=== PATIENT | female | born 1935 | race Caucasian/White ===

== ENCOUNTER → 2017-01-15 | Outpatient (CLI) | payer BC ==
[~2017-01-15] MED LIST: BIOT1TAB2 PO; EVS60 PO; MULT-506 PO; NITR-5 PO; OMEG10007 PO; OSCD250 PO
--- NOTE | 2017-01-15 16:05 | MAMMOGRAPHY REPORT ---
BILATERAL DIGITAL SCREENING MAMMOGRAM WITH CAD: 01/15/2017 CLINICAL HISTORY: Routine screening. At the time of this screening mammogram appointment, the patie pratik reported to her senior technologist that she felt a new lump in the upper inner quadrant of the right breast approximately 2 weeks ago. A triangle palpable marker was placed on the skin of th e right breast in the area pointed out by the patient. TECHNIQUE: Bilateral CC and MLO views were obtained. Current study was also evaluated with a Comput er Aided Detection (CAD) system. COMPARISON: Comparison is made to exams dated: 11/17/2015 mammogram, 11/15/2014 mammogram, 06/05/2013 m ammogram, 06/04/2012 mammogram, 09/27/2009 mammogram - [facility], and 04/30/2008. BREAST COMPOSITION: The tissue of both breasts is heterogeneously dense, which may obscure small ma sses. FINDINGS: The breast parenchymal pattern is similar to prior exams. There are diffuse scattered and grouped benign-appearing microcalcifications. A triangle palpable marker overlies the upper inner anterior right breast, denoting the new palpable lump pointed out by the patient. No obvious new ma ss is seen in the area of palpable concern, or elsewhere throughout the remainder of the right breas t or within the left breast. No focal area of architectural distortion or developing asymmetry. IMPRESSION: ACR BI-RADS CATEGORY 0: INCOMPLETE EVALUATION: NEED ADDITIONAL IMAGING EVALUATION 1. Stable bilateral mammograms. 2. However, at the time of this screening appointment to the patient reported a new lump in the upp er inner right breast. For complete workup of the new palpable abnormality the standard of care is mammography plus ultrasound. Therefore, further evaluation with spot compression tomosynthesis view s in the area of concern as well as targeted right breast ultrasound is recommended. The patient will be called to schedule an appointment. Approximately 10% of breast cancers are not detected with mammography. A negative mammographic repor t should not delay biopsy if a clinically suggestive mass is present. Denisa Ch M.D. ay/:01/15/2017 14:48:39 Historian Dramatic Arts: Hien Marcos RT(R)(M), [facility] letter sent: Addl Imaging 0 BI-RADS Code: ACR BI-RADS Category 0: Incomplete Evaluation: Need Additional Imaging Evaluation
== END | disposition home or self-care (01) ==
LOC: C.MAMM 14:15
PROVIDERS: ATTEND Internal Medicine Critical Care Medicine
DX: Z12.31 Encounter for screening mammogram for malignant neoplasm of breast (principal); N63 Unspecified lump in breast

== ENCOUNTER → 2017-01-23 | Outpatient (CLI) | payer BC ==
--- NOTE | 2017-01-23 14:54 | MAMMOGRAPHY REPORT ---
UNILATERAL RIGHT DIGITAL DIAGNOSTIC MAMMOGRAM TOMOSYNTHESIS WITH CAD AND TARGETED RIGHT ULTRASOUND: 01/23/2017 CLINICAL HISTORY: Callback for a palpable lump reported by the patient at the time of her screening mammogram. No abnormality was seen on the screening mammogram in this region. TECHNIQUE: Breast tomosynthesis in addition to standard 2D mammography was performed. Current study was also evaluated with a Computer Aided Detection (CAD) system. Spot compression right CC and MLO 2-D and tomosynthesis images were obtained. COMPARISON: Comparison is made to exams dated: 01/15/2017 mammogram, 11/17/2015 mammogram, 11/15/2014 ma mmogram, 06/05/2013 mammogram, 06/04/2012 mammogram, and 09/27/2009 mammogram - [facility] enter. BREAST COMPOSITION: The tissue of the right breast is heterogeneously dense, which may obscure smal l masses. FINDINGS: A triangle marker sutton the site of the palpable lump in the right 12:00 breast. There a re asymmetry seen within the right superior breast on the MLO view in the region of the palpable lum p which appears similar to prior exams including the 2011 exam. No clear mass or other suspicious m ammographic abnormality is noted on the additional views. Targeted ultrasound was performed of the area of the palpable lump pointed out by the patient, in th e right breast at 12:00 approximately 4 cm from the nipple. Sonographically normal tissue is seen i n this region, without evidence of a mass or other suspicious sonographic abnormality. IMPRESSION: ACR BI-RADS CATEGORY 2: BENIGN, TARGETED ULTRASOUND ACR BI-RADS CATEGORY 2: BENIGN No suspicious mammographic or sonographic abnormality at the site of the palpable right breast lump pointed out by the patient. There is no mammographic or targeted sonographic evidence of malignancy . Recommend clinical follow-up for the palpable right breast lump, and recommend routine bilateral screening mammograms in one year. The patient has been verbally notified of the results. Approximately 10% of breast cancers are not detected with mammography. A negative mammographic repor t should not delay biopsy if a clinically suggestive mass is present. Gifty Rodriguez M.D. /:01/23/2017 13:44:12 Heavy Equipment Field Mechanic: Madeline CORREIA(Satish)(Erum), [facility] letter sent: Normal /2 BI-RADS Code: ACR BI-RADS Category 2: Benign Ultrasound BI-RADS: ACR BI-RADS Category 2: Benign
== END | disposition home or self-care (01) ==
LOC: C.MAMM 13:05
PROVIDERS: ATTEND Internal Medicine Critical Care Medicine
DX: N63 Unspecified lump in breast (principal)

== ENCOUNTER → 2017-04-23 | Outpatient (CLI) | payer BC ==
[2017-04-23 10:51] LABS: BASO % 0.6 %; BASO ABS # 0.04 K/uL (0-0.2); COMPLETE YES; EOS % 5.1 %; HEMATOCRIT 45.6 % (37-47); IG% 0.1 %; LYMPH % 32.2 %; LYMPH ABS # 2.27 K/uL (1.2-3.4); MEAN CELL VOLUME 90.7 fL (80-100); MEAN CORPUSCULAR HEMOGLOBIN 28.8 pg (25-34); MEAN CORPUSCULAR HGB CONC 31.8 g/dl (32-36); MEAN PLATELET VOLUME 10.7 fL (7.4-10.4); MONO % 9.1 %; NEUT % 52.9 %; PLATELET COUNT 299 K/uL (130-400); RED BLOOD COUNT 5.03 M/uL (4.2-5.4); WHITE BLOOD COUNT 7.05 K/uL (4.8-10.8)
[2017-04-23 11:00] LABS: BLOOD UREA NITROGEN 21 mg/dl (7-18); BUN/CREATININE RATIO 22.9 (10-20); CALCIUM 9.3 mg/dl (8.5-10.1); CARBON DIOXIDE 28 mmol/L (21-32); CHLORIDE 108 mmol/L (98-107); GLUCOSE 75 mg/dl (70-99); POTASSIUM 3.8 mmol/L (3.5-5.1); SODIUM 141 mmol/L (136-145)
[2017-04-23 11:10] LABS: ALB/GLOB RATIO 0.9 (0.9-2); ALKALINE PHOSPHATASE 85 U/L (45-117); ALT/SGPT 30 U/L (12-78); AST/SGOT 23 U/L (15-37)
== END ==
LOC: C.LABVPSUW 10:25
PROVIDERS: ATTEND Internal Medicine Critical Care Medicine
DX: D64.9 Anemia, unspecified (principal); E03.9 Hypothyroidism, unspecified; R51 Headache; R53.83 Other fatigue; R63.8 Other symptoms and signs concerning food and fluid intake; R41.9 Unspecified symptoms and signs involving cognitive functions and awareness

== ENCOUNTER → 2018-01-21 | Outpatient (CLI) | payer BC | END | disposition home or self-care (01) | LOC: C.LABSPEC 12:23 | PROVIDERS: ATTEND Nurse Practitioner | DX: R30.0 Dysuria (principal) ==

== ENCOUNTER 2018-04-26 22:04 | Emergency (ER) | payer BC ==
[~2018-04-26] VITALS: Ht 157.5 cm; Wt 59.0 kg
[~2018-04-26 22:04] MED LIST changes: +ASPI-435 PO; -BIOT1TAB2 PO; +CALC600T34 PO; -EVS60 PO; -MULT-506 PO; -NITR-5 PO; -OSCD250 PO
[2018-04-26 22:08] VITALS: TEMP 36.8; Ht 157.5 cm; Wt 59.0 kg
--- NOTE | 2018-04-26 23:26 | EMERGENCY ROOM VISIT NOTE ---
History Report prepared by Zachary: Nicole Yost Under the Supervision of: Dr. Marshal Ellis D.O. First contact with patient: 22:35 Chief Complaint: URINARY SYMPTOMS Stated Complaint: BLADDER INFECTION History of Present Illness The patient is an 82 year old female who presents to the Emergency Room with complaints of sudden urinary symptoms starting this afternoon. The patient states that she a part of a test program at [employer] that has a wire that affects her nerves around her bladder. She states that when it was first placed she had a UTI and was placed on Bactrim for it. She states that she had no issues with it until today. She states that this afternoon she took someone to see [facility]. She states that she had to hold her urine coming home and when she finally urinated, she leaked out and then had painful cramping. The patient states that since that episode she has had cramping each time she urinates. The patient denies nausea, vomiting, and diarrhea. Past records show that in the patient's last visit she grew out E.coli that was foster sensitive. They talked to OB-CHIEF COMMUNICATIONS OFFICER who recommended Bactrim. Source of History: patient Onset: this afternoon Position: abdomen Quality: other (urinary symptoms) Timing: other (sudden) Associated Symptoms: + abdominal pain (cramping), No nausea, No vomiting, No diarrhea Review of Systems See HPI for pertinent positives & negatives. A total of 10 systems reviewed and were otherwise negative. Past Medical & Surgical Medical Problems: (1) Acute urinary tract infection (2) Anemia (3) bleeding gastric ulcer (4) hypotension (5) Hysterectomy (6) Osteoporosis (7) Tonsillectomy Family History Patient reports no known family medical history. Social History Smoking Status: Former Smoker Alcohol Use: none Marital Status: Housing Status: lives alone Occupation Status: retired Current/Historical Medications Scheduled Aspirin (Aspirin 81), 81 MG PO QD Calcium Carbonate-Cholecalcife (Calcium/Vitamin D), 2 TAB PO BID Fish Oil ([place]-3), 1 CAP PO HS Sulfamethoxazole-Trimethoprim (Bactrim Ds 800MG/160MG), 1 TAB PO BID Allergies Coded Allergies: No Known Allergies (Verified , 04/26/18) Physical Exam Vital Signs Date Time Temp Pulse Resp B/P (MAP) Pulse Ox O2 Delivery O2 Flow Rate FiO2 04/27/18 00:24 98 20 161/76 98 04/26/18 22:08 36.8 109 20 160/89 97 Room Air Physical Exam GENERAL: Sitting up in bed, alert, well appearing, well nourished, no distress, non-toxic EYE EXAM: normal conjunctiva. OROPHARYNX: no exudate, no erythema, lips, buccal mucosa, and tongue normal and mucous membranes are moist NECK: supple, no nuchal rigidity, no adenopathy, non-tender LUNGS: Clear to auscultation. Normal chest wall mechanics HEART: no murmurs, S1 normal and S2 normal ABDOMEN: abdomen soft, non-tender, normo-active bowel sounds, no masses, no rebound or guarding. BACK: Back is symmetrical on inspection and there is no deformity, no midline tenderness, no CVA tenderness. [employer] device in back with no surrounding erythema. SKIN: no rashes and no bruising UPPER EXTREMITIES: upper extremities are grossly normal. LOWER EXTREMITIES: No pitting edema. NEURO EXAM: Normal sensorium, cranial nerves II-XII grossly intact, normal speech, no gross weakness of arms, no gross weakness of legs. Medical Decision & Procedures Laboratory Results 04/26/18 23:13 Red Blood Count 5.02, Mean Corpuscular Volume 78.3, Mean Corpuscular Hemoglobin 24.5, Mean Corpuscular Hemoglobin Concent 31.3, Mean Platelet Volume 9.7, Neutrophils (%) (Auto) 66.1, Lymphocytes (%) (Auto) 22.9, Monocytes (%) (Auto) 8.7, Eosinophils (%) (Auto) 1.8, Basophils (%) (Auto) 0.4, Neutrophils # (Auto) 5.56, Lymphocytes # (Auto) 1.93, Monocytes # (Auto) 0.73, Eosinophils # (Auto) 0.15, Basophils # (Auto) 0.03 04/26/18 23:13 Test 04/26/18 22:45 04/26/18 23:13 Urine Color YELLOW Urine Appearance TURBID (CLEAR) Urine pH 5.0 (4.5-7.5) Urine Specific [place] 1.027 (1.000-1.030) Urine Protein 2+ (NEG) Urine Glucose (UA) NEG (NEG) Urine Ketones NEG (NEG) Urine Occult Blood 3+ (NEG) Urine Nitrite NEG (NEG) Urine Bilirubin NEG (NEG) Urine Urobilinogen NEG (NEG) Urine Leukocyte Esterase LARGE (NEG) Urine WBC (Auto) >30 /hpf (0-5) Urine RBC (Auto) >30 /hpf (0-4) Urine Hyaline Casts (Auto) 1-5 /lpf (0-5) Urine Epithelial Cells (Auto) 5-10 /lpf (0-5) Urine Bacteria (Auto) NEG (NEG) Urine Renal Epithelial Cells 10-20 /lpf (0-5) Urine Yeast (Auto) (NONE PRSENT) White Blood Count 8.41 K/uL (4.8-10.8) Red Blood Count 5.02 M/uL (4.2-5.4) Hemoglobin 12.3 g/dL (12.0-16.0) Hematocrit 39.3 % (37-47) Mean Corpuscular Volume 78.3 fL (80-100) Mean Corpuscular Hemoglobin 24.5 pg (25-34) Mean Corpuscular Hemoglobin Concent 31.3 g/dl (32-36) Platelet Count 294 K/uL (130-400) Mean Platelet Volume 9.7 fL (7.4-10.4) Neutrophils (%) (Auto) 66.1 % Lymphocytes (%) (Auto) 22.9 % Monocytes (%) (Auto) 8.7 % Eosinophils (%) (Auto) 1.8 % Basophils (%) (Auto) 0.4 % Neutrophils # (Auto) 5.56 K/uL (1.4-6.5) Lymphocytes # (Auto) 1.93 K/uL (1.2-3.4) Monocytes # (Auto) 0.73 K/uL (0.11-0.59) Eosinophils # (Auto) 0.15 K/uL (0-0.5) Basophils # (Auto) 0.03 K/uL (0-0.2) RDW Standard Deviation 45.0 fL (36.4-46.3) RDW Coefficient of Variation 15.8 % (11.5-14.5) Immature Granulocyte % (Auto) 0.1 % Immature Granulocyte # (Auto) 0.01 K/uL (0.00-0.02) Anion Gap 6.0 mmol/L (3-11) Est Creatinine Clear Calc Drug Dose 36.0 ml/min Estimated GFR () 66.3 Estimated GFR (Non- 57.2 BUN/Creatinine Ratio 30.7 (10-20) Calcium Level 9.4 mg/dl (8.5-10.1) Total Bilirubin 0.1 mg/dl (0.2-1) Direct Bilirubin < 0.1 mg/dl (0-0.2) Aspartate Amino Transf (AST/SGOT) 22 U/L (15-37) Alanine Aminotransferase (ALT/SGPT) 23 U/L (12-78) Alkaline Phosphatase 93 U/L (45-117) Total Protein 7.0 gm/dl (6.4-8.2) Albumin 3.4 gm/dl (3.4-5.0) Laboratory results per my review. Medications Administered Medications (Trade) Dose Ordered Sig/Laina Route Start Time Stop Time Status Last Admin Dose Admin Trimethoprim/ Sulfamethoxazole (Septra Ds 800/ 160MG Tab) 1 tab NOW STAT PO 04/27/18 00:04 04/27/18 00:05 DC 04/27/18 00:17 1 TAB Trimethoprim/ Sulfamethoxazole (Sulfameth/ Trimeth Ds 800/ 160MG Home Pack) 1 homepack STK-MED ONCE PO 04/27/18 00:19 04/27/18 00:20 DC 04/27/18 00:20 1 HOMEPACK ED Course ED COURSE: Vital signs were reviewed and showed hypertension and tachycardia. The patients medical record was reviewed The above diagnostic studies were performed and reviewed. ED treatments and interventions as stated above. 2238: The patient was evaluated in room C5. A complete history and physical examination was performed. 0004: Ordered Trimethoprim/Sulfamethoxazole 1 tab PO. 0006: Upon reevaluation, the patient is resting comfortably. I discussed my findings with the patient and she understands and agrees with the treatment plan. Based on the patients age, coexisting illnesses, exam and lab findings the decision to treat as an outpatient was made. The patient remained stable while under my care. The patient appeared well at the time of discharge. Medical Decision Differential diagnoses includes but is not limited to gastritis, peptic ulcer disease, GERD, gallbladder disease, pancreatitis, small bowel obstruction, acute coronary syndrome, pericarditis, ischemic bowel, irritable bowel disease, irritable bowel syndrome, appendicitis, diverticulitis, malignancy, hernia, urinary tract infection, torsion, /ectopic , perforation, trauma, infectious. Patient is an 82-year-old female who presents to ER for urinary urgency and frequency. She notes symptoms started tonight. She is in a bladder study at [facility] through mechanic insulator. Patient notes that she was here recently treated for UTI. Previous cultures reviewed and notes. Pansensitive. Previous notes for her [facility] and was recommending Bactrim and following up as an outpatient. I updated patient in regards to these findings. She is given a dose of Bactrim and discharged follow-up with PCP as an outpatient. Patient had no other complaints. Abdominal exam was completely benign. She denies any abdominal pain. Discussed with Pt concerning signs and symptoms to watch out for. Pt was instructed to follow up with their PCP and discussed with the patient their option to return to the ED at anytime for persistent or worsening symptoms. The appropriate anticipatory guidance and out- patient management, including indications for return to the emergency department , were explained at length to the patient and understood. Medication Reconcilliation Current Medication List: was personally reviewed by me Blood Pressure Screening Patient's blood pressure: Elevated blood pressure Blood pressure disposition: Referred to PCP Impression Primary Impression: Urinary tract infection Scribe Attestation The scribe's documentation has been prepared under my direction and personally reviewed by me in its entirety. I confirm that the note above accurately reflects all work, treatment, procedures, and medical decision making performed by me. Departure Information Dispostion Home / Self-Care Prescriptions Sulfamethoxazole-Trimethoprim (Bactrim Ds 800MG/160MG) 1 Tab Tab 1 TAB PO BID, #14 TAB Prov: Marshal Ellis, 04/27/18 Referrals Demetrio Leon M.D. (PCP) Forms HOME CARE DOCUMENTATION FORM, IMPORTANT VISIT INFORMATION Patient Instructions My [facility] Additional Instructions Please follow up with your primary care doctor with in the next 24 hours. Any worsening of your symptoms, please return to the ED immediately. This includes any fevers greater than 100.4, worsening pain, chest pain, shortness breath, persistent nausea, vomiting, unable to eat or drink, or any other concerning signs or symptoms from your standpoint. Please take antibiotics as prescribed. Problem Qualifiers Primary Impression: Urinary tract infection Urinary tract infection type: acute cystitis Hematuria presence: with hematuria Qualified Codes: N30.01 - Acute cystitis with hematuria
[2018-04-26 23:30] LABS: BASO % 0.4 %; BASO ABS # 0.03 K/uL (0-0.2); EOS % 1.8 %; EOS ABS # 0.15 K/uL (0-0.5); HEMATOCRIT 39.3 % (37-47); HEMOGLOBIN 12.3 g/dL (12.0-16.0); IG# 0.01 K/uL (0.00-0.02); LYMPH % 22.9 %; LYMPH ABS # 1.93 K/uL (1.2-3.4); MEAN CELL VOLUME 78.3 fL (80-100); MEAN CORPUSCULAR HEMOGLOBIN 24.5 pg (25-34); MEAN CORPUSCULAR HGB CONC 31.3 g/dl (32-36); MEAN PLATELET VOLUME 9.7 fL (7.4-10.4); MONO % 8.7 %; MONO ABS # 0.73 K/uL (0.11-0.59); NEUT % 66.1 %; NEUT ABS # 5.56 K/uL (1.4-6.5); PLATELET COUNT 294 K/uL (130-400); RED CELL DISTRIBUTION WIDTH CV 15.8 % (11.5-14.5); WHITE BLOOD COUNT 8.41 K/uL (4.8-10.8)
[2018-04-26 23:51] LABS: ALBUMIN 3.4 gm/dl (3.4-5.0); ALKALINE PHOSPHATASE 93 U/L (45-117); ALT/SGPT 23 U/L (12-78); AST/SGOT 22 U/L (15-37); BLOOD UREA NITROGEN 28 mg/dl (7-18); CALCIUM 9.4 mg/dl (8.5-10.1); CARBON DIOXIDE 28 mmol/L (21-32); CREATININE 0.92 mg/dl (0.60-1.20); GLUCOSE 105 mg/dl (70-99); POTASSIUM 3.7 mmol/L (3.5-5.1); SODIUM 140 mmol/L (136-145)
[2018-04-27] MEDS ORDERED: SULFAMETHOXAZOLE/TRIMETHOPRIM DS 800/160MG TAB PO STA (00:04)
[2018-04-27] MEDS ORDERED: SULF800T23 PO (00:10)
[2018-04-27] MEDS ORDERED: SEPTRA DS HOME PACK 1 EA VIAL PO ONE (00:19)
[2018-04-27 00:24] VITALS: BP 161/76; PULSE 98; O2SAT 98
[2018-04-27] MEDS ORDERED: NURSING VERBAL MED ORDER ONE (00:30)
== END 2018-04-27 00:24 | disposition home or self-care (01) ==
LOC: C.EDB 22:06 → C.EDC 04-27 00:24
DX: N39.0 Urinary tract infection, site not specified (principal); Z90.710 Acquired absence of both cervix and uterus; M81.0 Age-related osteoporosis without current pathological fracture; Z87.891 Personal history of nicotine dependence; Z79.82 Long term (current) use of aspirin; R03.0 Elevated blood-pressure reading, without diagnosis of hypertension

== ENCOUNTER 2023-04-10 15:11 | Inpatient (IN) ==
[2023-04-10] MEDS ORDERED: fentaNYL citrate PF 100 MCG/2 ML VIAL IV STA (16:07)
--- NOTE | 2023-04-10 16:10 | Emergency Department Note ---
Impression & Plan Closed fracture of neck of right femur ED Provider Note HISTORY OF PRESENT ILLNESS: Patient is an 87-year-old female presenting with right hip pain. Patient reports she was squatting putting books away on a bookshelf when her right leg gave out and she fell onto her right buttocks. She reports immediate pain and deformity to the right hip. She was unable to get up on her own and bear weight on her right limb. Denies striking her head or loss of consciousness. Denies any chest pain or shortness of breath. Denies any abdominal pain ROS: as above PHYSICAL EXAM: Constitutional: Patient appears in no acute distress. HENT: Head: Normocephalic and atraumatic. Eyes: EOMI, PERRL Mouth/Throat: Mucous membranes moist. Neck: Trachea midline. Neck supple. Cardiovascular: RRR, No murmurs, rubs or gallops. Intact distal pulses. Pulmonary/Chest: No respiratory distress. Breath sounds clear and equal bilaterally. No wheezes or rales. No chest wall tenderness to palpation. Abdominal: Abdomen soft, no tenderness, rebound or guarding. Musculoskeletal: - RLE: Right leg is externally rotated. Tenderness palpation over the proximal lateral right hip. Patient is able to wiggle toes and dorsiflex and plantarflex at the ankle. Intact DP and PT pulses. Sensation intact to light touch of the nerve distributions of the leg Skin: Warm and dry. No rash, erythema, pallor or cyanosis Neurological: Alert and keenly responsive. CN II-XII grossly intact MDM: - Vitals signs showed hypertension - History obtained via patient. Patient presents with right hip pain. Patient was squatting to put books on a bookshelf when she fell backwards and landed onto her right buttocks. Had immediate pain and deformity to the right hip. Has been unable to get up or bear weight since. Denies striking her head or loss of consciousness. She is not on any anticoagulation - Chronic conditions affecting care: HLD - Differential diagnoses include, but are not limited to: hip dislocation; femur fracture; bony contusion - Order placed for continuous cardiac monitoring. At this time, monitor showed rate of 73 bpm with normal sinus rhythm, per my interpretation. - External medical records reviewed. EMS run sheet reviewed. Patient vitally stable in route. No medications were given prehospital - EKG reviewed by myself showed normal sinus rhythm. Rate 71 bpm. QTc 465. No acute ischemic changes. - Laboratory workup interpreted by myself showed normal WBC; stable electrolytes; normal troponin - Xray pelvis shows right femoral neck fracture, per my interpretation. - Discussed case with orthopedist superannuation funds manager, Dr. Salazar. Reports plan for OR for surgical repair tomorrow. - Patient given 50 mcg IV fentanyl for pain control in ER. - Discussion was had with social services manager about patient's case and need for admission. - Hospitalist, Dr. Adam, consulted for admission - [facility] and [facility]. ASSESSMENT AND PLAN: Diagnosis: right femoral neck fracture Plan: admit Past Med/Surg History Medical History Anxiety and depression controlled per pt Chronic headaches chronic, follows with PCP, denies change or worsening Hearing deficit B/L HDEZ History of urinary incontinence Urge and Stress Hypercholesterolemia Osteoporosis Presence of pessary Surgical History H/O: hysterectomy + bilateral ovary removal History of cataract surgery History of colonoscopy History of tonsillectomy and adenoidectomy History of wisdom tooth extraction Status post urinary system surgery Implant placed (in back) for urinary incontinence Tonsillectomy Family History Sister Diabetes Father Cancer Other Family history non-contributory Social History Smoking Status: Former smoker Tobacco Type: Cigarettes Second Hand Exposure: No; Do You Dip or Chew Tobacco: No; Hx Alcohol Use: No Hx Substance Use: No Preferred Language: Yemeni Communication Ability: Effective Press Tender Star Signal Required: No Beliefs That Will Affect Care: None marital status: / Current Living Situation: Alone current occupational status: retired Feels Safe at Home: Yes Assistive Devices: Hearing Aid - Bilateral Allergies Allergies Allergy/AdvReac Type Severity Reaction Status Date / Time No Known Allergies Allergy Verified 04/10/23 17:33 Home Meds Home Medications Medication Instructions Recorded Confirmed calcium carbonate 600 mg-vitamin 2 cap PO QAM 07/15/19 04/10/23 D3 5 mcg (200 unit) capsule (Calcium 600 + D(3)) sertraline 50 mg tablet 50 mg PO DAILY 05/31/22 04/10/23 aspirin 81 mg tablet,delayed 81 mg PO DAILY 08/21/22 04/10/23 release (Adult Low Dose Aspirin) biotin 10 mg tablet 10 mg PO DAILY 04/10/23 04/10/23 ketoconazole 2 % shampoo 1 applic topical DIRECTED PRN 04/10/23 04/10/23 NEEDED PER EXT MED HX. melatonin 3 mg tablet 0 mg PO HS PRN Sleep 04/10/23 04/10/23 Previous Rx's Medication Instructions Recorded meclizine 12.5 mg tablet 12.5 mg PO TID PRN dizziness #20 01/18/23 tabs Results & Data (ED) Vital Signs Vital Signs - 24 hr 04/10/23 15:06 04/10/23 15:06 04/10/23 15:37 Temperature 36.7 C Temperature Source Oral Pulse Rate 71 76 Pulse Rate [Apical] 74 Pulse Rate from SpO2 Sensor Respiratory Rate 12 20 Respiratory Depth Normal Blood Pressure 189/91 H Blood Pressure Mean 123 Pulse Oximetry 94 95 Oxygen Delivery Method Room Air Room Air Sepsis Recent Fever Within 48 Hours No Sepsis New/Unexplained Change in Mental Status N/A Sepsis Action Taken by Nursing No Action Required 04/10/23 15:26 04/10/23 15:30 04/10/23 15:40 Temperature Temperature Source Pulse Rate 76 77 74 Pulse Rate [Apical] Pulse Rate from SpO2 Sensor 78 79 75 Respiratory Rate 25 H 19 20 Respiratory Depth Blood Pressure Blood Pressure Mean Pulse Oximetry 95 94 93 Oxygen Delivery Method Sepsis Recent Fever Within 48 Hours Sepsis New/Unexplained Change in Mental Status Sepsis Action Taken by Nursing 04/10/23 15:50 04/10/23 16:00 04/10/23 16:10 Temperature Temperature Source Pulse Rate 73 78 77 Pulse Rate [Apical] Pulse Rate from SpO2 Sensor 75 77 73 Respiratory Rate 23 23 22 Respiratory Depth Blood Pressure Blood Pressure Mean Pulse Oximetry 93 93 93 Oxygen Delivery Method Sepsis Recent Fever Within 48 Hours Sepsis New/Unexplained Change in Mental Status Sepsis Action Taken by Nursing 04/10/23 16:20 04/10/23 16:30 04/10/23 16:30 Temperature Temperature Source Pulse Rate 72 80 Pulse Rate [Apical] Pulse Rate from SpO2 Sensor 74 83 Respiratory Rate 20 25 H Respiratory Depth Blood Pressure 157/105 H Blood Pressure Mean 107 Pulse Oximetry 94 94 Oxygen Delivery Method Sepsis Recent Fever Within 48 Hours Sepsis New/Unexplained Change in Mental Status Sepsis Action Taken by Nursing 04/10/23 16:40 04/10/23 16:50 04/10/23 17:00 Temperature Temperature Source Pulse Rate 81 86 Pulse Rate [Apical] Pulse Rate from SpO2 Sensor Respiratory Rate 18 23 Respiratory Depth Blood Pressure 178/88 H Blood Pressure Mean 145 Pulse Oximetry Oxygen Delivery Method Sepsis Recent Fever Within 48 Hours Sepsis New/Unexplained Change in Mental Status Sepsis Action Taken by Nursing 04/10/23 17:00 04/10/23 17:10 04/10/23 17:20 Temperature Temperature Source Pulse Rate 77 71 71 Pulse Rate [Apical] Pulse Rate from SpO2 Sensor 72 69 Respiratory Rate 22 17 18 Respiratory Depth Blood Pressure Blood Pressure Mean Pulse Oximetry 92 91 Oxygen Delivery Method Sepsis Recent Fever Within 48 Hours Sepsis New/Unexplained Change in Mental Status Sepsis Action Taken by Nursing 04/10/23 17:30 04/10/23 17:30 04/10/23 17:40 Temperature Temperature Source Pulse Rate 72 72 Pulse Rate [Apical] Pulse Rate from SpO2 Sensor 71 69 Respiratory Rate 20 28 H Respiratory Depth Blood Pressure 161/79 H Blood Pressure Mean 123 Pulse Oximetry 92 91 Oxygen Delivery Method Sepsis Recent Fever Within 48 Hours Sepsis New/Unexplained Change in Mental Status Sepsis Action Taken by Nursing 04/10/23 17:50 04/10/23 18:00 04/10/23 18:00 Temperature Temperature Source Pulse Rate 74 69 Pulse Rate [Apical] Pulse Rate from SpO2 Sensor 73 71 Respiratory Rate 20 19 Respiratory Depth Blood Pressure 154/78 H Blood Pressure Mean 110 Pulse Oximetry 91 92 Oxygen Delivery Method Sepsis Recent Fever Within 48 Hours Sepsis New/Unexplained Change in Mental Status Sepsis Action Taken by Nursing 04/10/23 18:10 04/10/23 18:20 04/10/23 18:30 Temperature Temperature Source Pulse Rate 74 82 Pulse Rate [Apical] Pulse Rate from SpO2 Sensor 78 86 Respiratory Rate 22 24 Respiratory Depth Blood Pressure 169/83 H Blood Pressure Mean 110 Pulse Oximetry 91 94 Oxygen Delivery Method Sepsis Recent Fever Within 48 Hours Sepsis New/Unexplained Change in Mental Status Sepsis Action Taken by Nursing 04/10/23 18:30 04/10/23 18:40 Temperature Temperature Source Pulse Rate 74 73 Pulse Rate [Apical] Pulse Rate from SpO2 Sensor 77 73 Respiratory Rate 20 21 Respiratory Depth Blood Pressure Blood Pressure Mean Pulse Oximetry 92 92 Oxygen Delivery Method Sepsis Recent Fever Within 48 Hours Sepsis New/Unexplained Change in Mental Status Sepsis Action Taken by Nursing Laboratory Data 04/10/23 17:55 04/10/23 17:55 Lab Results 04/10/23 04/10/23 04/10/23 Range/Units 17:55 17:55 17:55 WBC 10.76 (4.8-10.8) K/ul RBC 4.80 (4.20-5.40) M/uL Hgb 13.1 (12.0-16.0) g/dl Hct 40.4 (37.0-47.0) % MCV 84.2 (80.0-100.0) fL MCH 27.3 (25.0-34.0) pg MCHC 32.4 (32.0-36.0) g/dL RDW Std Deviation 44.2 (36.4-46.3) fL RDW Coeff of Carole 14.4 (11.5-14.5) % Plt Count 243 (130-400) K/uL MPV 10.6 (9.4-12.4) fL Immature Gran % (Auto) 0.6 % Neut % (Auto) 83.4 % Lymph % (Auto) 8.2 % [place] % (Auto) 6.5 % Eos % (Auto) 0.8 % Baso % (Auto) 0.5 % Neut # (Auto) 8.98 H (1.40-6.50) K/uL Lymph # (Auto) 0.88 L (1.2-3.4) K/uL [place] # (Auto) 0.70 H (0.11-0.59) K/uL Eos # (Auto) 0.09 (0-0.50) K/uL Baso # (Auto) 0.05 (0-0.2) K/uL Immature Gran # (Auto) 0.06 (0.01-0.20) K/uL Sodium 137 (136-145) mmol/L Potassium 4.1 (3.5-5.1) mmol/L Chloride 106 (98-107) mmol/L Carbon Dioxide 25 (21-32) mmol/L Anion Gap 6 (3-11) BUN 20 (6-23) mg/dl Creatinine 0.86 (0.6-1.2) mg/dl Est Cr Clr Drug Dosing 41.5 ml/min Est GFR ( Amer) 69.4 ml/min Est GFR (Non-Af Amer) 59.9 ml/min BUN/Creatinine Ratio 23.3 H (10-20) Glucose 115 H (70-99(Fasting)) mg/dl Calcium 9.4 (8.6-10.3) mg/dl Total Bilirubin 0.4 (0.2-1.0) mg/dl AST 19 (13-39) U/L ALT 15 (7-52) U/L Alkaline Phosphatase 70 (34-104) U/L Troponin I High Sens 7.6 (0-14) pg/ml Total Protein 6.3 (6.0-8.3) gm/dl Albumin 3.8 (3.4-5.0) gm/dl Globulin 2.5 (2.5-4.0) gm/dl Albumin/Globulin Ratio 1.5 (0.9-2) Blood Type AB Negative Antibody Screen NEGATIVE Administered Medications Discontinued Medications Fentanyl Citrate (Fentanyl Citrate Pf 100 Mcg/2 Ml Vial) 50 mcg IV NOW STA Stop: 04/10/23 16:08 Last Admin: 04/10/23 16:57 Dose: 50 mcg Documented By: [facility] Imaging Data Radiologist's Impression: Hip/Pelvis X-Ray 04/10/23 15:50 XR hip RT 2V w pelvis CLINICAL HISTORY: right hip pain s/p fall COMPARISON: CT of the abdomen and pelvis November 12, 2019. FINDINGS: Sacroiliac joints and symphysis pubis are intact. There is an acute displaced right femoral neck fracture. Fracture is displaced approximately 1.9 cm. There is no proximal left femoral fracture. Moderate left hip osteoarthritis is present. There is mild to moderate right hip osteoarthritis. IMPRESSION: Acute displaced right femoral neck fracture. ACT 112: Negative or not required by law. Electronically signed by: Jasen Gilbert M.D. 04/10/2023 5:05 PM Chest X-Ray 04/10/23 16:50 XR chest 1V portable CLINICAL HISTORY: Fall. COMPARISON STUDY: Chest radiograph January 18, 2023. FINDINGS: Lung volumes are normal. Lungs are clear. There is no pneumothorax or pleural effusion. There is mild cardiomegaly. A large hiatal hernia is noted. There is no evidence for pulmonary edema. Skin folds project over the left chest. IMPRESSION: No acute cardiopulmonary findings. ACT 112: Negative or not required by law. Electronically signed by: Jasen Gilbert M.D. 04/10/2023 5:07 PM Discharge Plan Visit Data Chief Complaint: Fall ED Provider: Kirti Moran Discharge Problem: Closed fracture of neck of right femur Forms Stand Alone Forms: [facility] Prescriptions Prescriptions: No Action sertraline 50 mg tablet 50 mg PO DAILY aspirin [Adult Low Dose Aspirin] 81 mg tablet,delayed release (DR/EC) 81 mg PO DAILY Patient Comments: every other day Calcium 600 + D(3) 600 mg calcium- 200 unit Capsule 2 cap PO QAM biotin 10 mg Tablet 10 mg PO DAILY ketoconazole 2 % shampoo 1 applic TOPICAL DIRECTED PRN (Reason: NEEDED PER EXT MED HX.) melatonin 3 mg Tablet 0 mg PO HS PRN (Reason: Sleep) Rx Instructions: PT UNSURE OF STRENGTH meclizine 12.5 mg tablet 12.5 mg PO TID PRN (Reason: dizziness) Qty: 20 0RF Referrals Referrals: [facility] [Primary Care Provider] -
--- NOTE | 2023-04-10 17:07 | XRay Report ---
XR hip RT 2V w pelvis CLINICAL HISTORY: right hip pain s/p fall COMPARISON: CT of the abdomen and pelvis November 12, 2019. FINDINGS: Sacroiliac joints and symphysis pubis are intact. There is an acute displaced right femora l neck fracture. Fracture is displaced approximately 1.9 cm. There is no proximal left femoral fractu re. Moderate left hip osteoarthritis is present. There is mild to moderate right hip osteoarthritis. IMPRESSION: Acute displaced right femoral neck fracture. ACT 112: Negative or not required by law. Electronically signed by: Jasen Gilbert M.D. 04/10/2023 5:05 PM
--- NOTE | 2023-04-10 17:09 | XRay Report ---
XR chest 1V portable CLINICAL HISTORY: Fall. COMPARISON STUDY: Chest radiograph January 18, 2023. FINDINGS: Lung volumes are normal. Lungs are clear. There is no pneumothorax or pleural effusion. The re is mild cardiomegaly. A large hiatal hernia is noted. There is no evidence for pulmonary edema. Sk in folds project over the left chest. IMPRESSION: No acute cardiopulmonary findings. ACT 112: Negative or not required by law. Electronically signed by: Jasen Gilbert M.D. 04/10/2023 5:07 PM
[2023-04-10 18:21] LABS: Basophils # (auto) 0.05 K/uL (0-0.2); Basophils % (auto) 0.5 %; Eosinophils # (auto) 0.09 K/uL (0-0.50); Eosinophils % (auto) 0.8 %; Hematocrit (blood only) 40.4 % (37.0-47.0); Hemoglobin 13.1 g/dl (12.0-16.0); Immature Granulocytes # (auto) 0.06 K/uL (0.01-0.20); Immature Granulocytes % (auto) 0.6 %; Lymphocytes # (auto) 0.88 K/uL (1.2-3.4); Lymphocytes % (auto) 8.2 %; Mean Corpuscular Hemoglobin 27.3 pg (25.0-34.0); Mean Corpuscular Hgb Conc 32.4 g/dL (32.0-36.0); Mean Corpuscular Volume 84.2 fL (80.0-100.0); Mean Platelet Volume 10.6 fL (9.4-12.4); Monocytes % (auto) 6.5 %; Neutrophils # (auto) 8.98 K/uL (1.40-6.50); Neutrophils % (auto) 83.4 %; Platelet Count 243 K/uL (130-400); RDW Coefficient of Variation 14.4 % (11.5-14.5); RDW Standard Deviation 44.2 fL (36.4-46.3); White Blood Count 10.76 K/ul (4.8-10.8)
[2023-04-10 18:33] LABS: Albumin Globulin Ratio 1.5 (0.9-2); Albumin Level 3.8 gm/dl (3.4-5.0); BUN Creatinine Ratio 23.3 (10-20); Bilirubin,Total 0.4 mg/dl (0.2-1.0); Calcium 9.4 mg/dl (8.6-10.3); Creatinine Clr Calc Pharmacy 41.5 ml/min; Est GFR (African American) 69.4 ml/min; Est GFR (Non-African American) 59.9 ml/min; Globulin 2.5 gm/dl (2.5-4.0); Potassium 4.1 mmol/L (3.5-5.1); Total Protein 6.3 gm/dl (6.0-8.3)
[2023-04-10 18:38] LABS: Troponin I High Sensitivity 7.6 pg/ml (0-14)
--- NOTE | 2023-04-10 19:25 | History & Physical Report ---
Date of Service April 10, 2023 Assessment & Plan (1) Closed fracture of neck of right femur: Plan: Acute right hip fracture Right leg externally rotated and shortened No neurovascular compromise CXR: No acute findings Hip x-ray: Acute displaced right femoral neck fracture No leukocytosis, hemoglobin 13.1 Ortho consulted Creatinine 0.86 No history of insulin use, heart failure RCRI: Normal risk surgery, no history of ischemic heart disease, no history of CHF, no history of CVA. No pretreatment with insulin, preop creatinine is less than 2. RCRI 0 points, class I risk, 3.9% 30-day risk of mortality - Discussed with son. has not been on aspirin in 3 years. No hx CVA/CAD. Was on for primary prevention. Confirms DNR/DNI Doss catheter placed Depression Continue sertraline Bladder incontinence mixed, - history of stimulator s/p removal Removed 08/2021 in order to obtain MRI. Follows with [employer] [employer] and has pessary placed every few months Doss placed for hip fracture DVT prophylaxis: SCDs, heparin, hold prior to surgery. Surgery anticipated 04/11 Diet: N.p.o. at midnight Disposition: Medical surgical CODE STATUS: DNR/DNI. (2) Hypercholesterolemia: (3) Urge and stress incontinence: History of Present Illness Primary Care Provider: [facility] Paola is an 87-year-old female with a past medical history of UTI, urge and stress incontinence, hyperlipidemia, osteoporosis, hysterectomy who presents to the ER 04/10 with right hip pain after she was squatting putting weight books when her leg gave out calling her to roll on her buttocks with immediate pain radiating into her right hip and inability to bear weight. She had no lightheadedness/dizziness that contributed to her fall. Paola is seen at the bedside. She is limited historian somewhat forgetful, but is oriented to name, place, and year and is able to give a reasonable history. She reports she was squatted down and putting books away when she just felt like she tilted to the side and her leg gave out causing her to strike her right but on the floor. She immediately had pain and inability to move or stand on her right leg. She has never had pain like this before. She does not have any chest pain, chest pressure, dizziness, lightheadedness, syncope, or presyncope that led to her fall. He does not have any numbness or tingling in her legs. She does not think she is taking aspirin, she reports she has no history of heart failure and has never had a stroke but does have some forgetfulness and memory issues. She had a device for bladder stimulation in the past, this was removed years ago and now she only uses a pessary and follows with [employer]. Denies other hardware. No fever, chills. No nausea. She reports she does have 8/10 pain in her right hip at time of assessment Medical History: Reviewed Medications: Reviewed Surgical History: Reviewed Family history: Reviewed Allergies: Reviewed Social History: No tobacco, no etoh. Code Status:DNR/DNI Allergies Allergy/AdvReac Type Severity Reaction Status Date / Time No Known Allergies Allergy Verified 04/10/23 17:33 Home Medications Medication Instructions Recorded Confirmed Type calcium carbonate 600 mg-vitamin 2 cap PO QAM 07/15/19 04/10/23 History D3 5 mcg (200 unit) capsule (Calcium 600 + D(3)) sertraline 50 mg tablet 50 mg PO DAILY 05/31/22 04/10/23 History aspirin 81 mg tablet,delayed 81 mg PO DAILY 08/21/22 04/10/23 History release (Adult Low Dose Aspirin) meclizine 12.5 mg tablet 12.5 mg PO TID PRN dizziness #20 01/18/23 04/10/23 Rx tabs biotin 10 mg tablet 10 mg PO DAILY 04/10/23 04/10/23 History ketoconazole 2 % shampoo 1 applic topical DIRECTED PRN 04/10/23 04/10/23 History NEEDED PER EXT MED HX. melatonin 3 mg tablet 0 mg PO HS PRN Sleep 04/10/23 04/10/23 History Past Med/Surg History Medical History (Updated 04/10/23 @ 19:39 by Demetrio Adam MD) Anxiety and depression controlled per pt Chronic headaches chronic, follows with PCP, denies change or worsening Hearing deficit B/L HDEZ History of urinary incontinence Urge and Stress Hypercholesterolemia Osteoporosis Presence of pessary Surgical History H/O: hysterectomy + bilateral ovary removal History of cataract surgery History of colonoscopy History of tonsillectomy and adenoidectomy History of wisdom tooth extraction Status post urinary system surgery Implant placed (in back) for urinary incontinence Tonsillectomy Family History Sister Diabetes Father Cancer Other Family history non-contributory Social History Smoking Status: Former smoker Tobacco Type: Cigarettes Second Hand Exposure: No; Do You Dip or Chew Tobacco: No; Hx Alcohol Use: No Hx Substance Use: No Preferred Language: [place] Communication Ability: Effective 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 NAD. Cooperative. HEENT: Atraumatic, normocephalic. Patient/hearing grossly intact Pulm: CTAB A&P. -wheezes, -rales, -rhonchi. Symmetrical chest rise. No increased work of breathing. No respiratory distress. Cardiac: RRR, -mrg. Radial pulses intact and symmetrical. Abdominal: Nontender, nondistended, soft. BS present. Extremities: Right lower extremity externally rotated and shortened. Sensation of soft touch is intact in feet bilaterally, able to wiggle toes bilaterally. PT pulse intact bilaterally. Results & Data Results & Data Vital Signs (Past 12 Hours) Vital Signs Temp Pulse Pulse Resp BP Pulse Ox O2 Del Method 04/10/23 19:15 74 04/10/23 19:10 76 20 90 04/10/23 19:01 75 21 158/84 H 94 04/10/23 19:00 80 26 H 94 04/10/23 18:50 75 24 94 04/10/23 18:40 73 21 92 04/10/23 18:30 74 20 92 04/10/23 18:30 169/83 H 04/10/23 18:20 82 24 94 04/10/23 18:10 74 22 91 04/10/23 18:00 69 19 92 04/10/23 18:00 154/78 H 04/10/23 17:50 74 20 91 04/10/23 17:40 72 28 H 91 08/02/23 17:30 72 20 92 04/10/23 17:30 161/79 H 04/10/23 17:20 71 18 91 04/10/23 17:10 71 17 92 04/10/23 17:00 77 22 04/10/23 17:00 178/88 H 04/10/23 16:50 86 23 04/10/23 16:40 81 18 04/10/23 16:30 80 25 H 94 04/10/23 16:30 157/105 H 04/10/23 16:20 72 20 94 04/10/23 16:10 77 22 93 04/10/23 16:00 78 23 93 04/10/23 15:50 73 23 93 04/10/23 15:40 74 20 93 04/10/23 15:30 77 19 94 04/10/23 15:26 76 25 H 95 04/10/23 15:37 76 04/10/23 15:06 74 20 95 Room Air 04/10/23 15:06 36.7 C 71 12 189/91 H 94 Room Air PG Care Time/CCT Total # of Minutes Spent Total Time Spent with Patient: Total time spent is greater than 50% in coordination of care (as documented) at patient's floor/unit and/or counseling patient: Coding Level of Care Code 05880 INT INP/OBS CARE 375MIN Diagnoses Closed fracture of neck of right femur S72.001A Hypercholesterolemia E78.00 Urge and stress incontinence N39.46
[2023-04-10] MEDS ORDERED: MAGNESIUM HYDROXIDE SUSP 30 ML UDC PO PRN (19:43)
[2023-04-10] MEDS ORDERED: bisacodyL 10 MG SUPP PR PRN (19:43)
[2023-04-10] MEDS ORDERED: NALOXONE HCL 0.4 MG/1 ML VIAL/CARP IV PRN (19:43)
[2023-04-10] MEDS: HYDROmorphone INJ 1 MG/ML SYRINGE IV PRN (20:36)
[2023-04-10] MEDS: DOCUSATE SODIUM/SENNA 50/8.6MG TAB PO SCH (20:36)
[2023-04-10] MEDS ORDERED: MECLIZINE 12.5 MG TAB PO PRN (22:15)
[2023-04-10] MEDS: PLASMA-LYTE A 1,000 ML IV SCH (22:24)
[2023-04-10] MEDS: MELATONIN 3 MG TAB PO PRN (22:27)
[2023-04-11] MEDS: HYDROmorphone INJ 1 MG/ML SYRINGE IV PRN (05:54)
[2023-04-11 06:47] LABS: Basophils # (auto) 0.04 K/uL (0-0.2); Basophils % (auto) 0.4 %; Eosinophils # (auto) 0.02 K/uL (0-0.50); Eosinophils % (auto) 0.2 %; Hematocrit (blood only) 37.3 % (37.0-47.0); Hemoglobin 12.2 g/dl (12.0-16.0); Immature Granulocytes # (auto) 0.03 K/uL (0.01-0.20); Immature Granulocytes % (auto) 0.3 %; Lymphocytes # (auto) 0.76 K/uL (1.2-3.4); Lymphocytes % (auto) 8.2 %; Mean Corpuscular Hemoglobin 27.7 pg (25.0-34.0); Mean Corpuscular Hgb Conc 32.7 g/dL (32.0-36.0); Mean Corpuscular Volume 84.6 fL (80.0-100.0); Mean Platelet Volume 10.5 fL (9.4-12.4); Monocytes # (auto) 0.89 K/uL (0.11-0.59); Monocytes % (auto) 9.6 %; Neutrophils # (auto) 7.55 K/uL (1.40-6.50); Neutrophils % (auto) 81.3 %; Platelet Count 220 K/uL (130-400); RDW Coefficient of Variation 14.5 % (11.5-14.5); RDW Standard Deviation 44.6 fL (36.4-46.3); Red Blood Count 4.41 M/uL (4.20-5.40); White Blood Count 9.29 K/ul (4.8-10.8)
[2023-04-11 07:14] LABS: BUN Creatinine Ratio 23.7 (10-20); Calcium 9.2 mg/dl (8.6-10.3); Creatinine Clr Calc Pharmacy 46.3 ml/min; Est GFR (African American) 80.6 ml/min; Est GFR (Non-African American) 69.5 ml/min; Potassium 3.9 mmol/L (3.5-5.1)
[2023-04-11] MEDS: SERTRALINE HCL 50 MG TABLET PO SCH (07:59)
--- NOTE | 2023-04-11 09:01 | Communication Note ---
Date of Service: April 11, 2023 Imaging reviewed, plan for right hip hemiarthroplasty this 04/11.
--- NOTE | 2023-04-11 10:35 | Anesthesiology Consultation ---
Date of Service April 11, 2023 Assessment & Plan Chart Review Chart Review: pharmacy order entry technician initiated History Surgery Operation Date: 04/11/23 09:15 Proposed Procedures p Right Hip Hemiarthroplasty - Luis F Salazar DO Height/Weight Height: 5 ft 6 in Weight: 58.4 kg Allergies Allergy/AdvReac Type Severity Reaction Status Date / Time No Known Allergies Allergy Verified 04/10/23 17:33 Medications Home Medications Medication Instructions Recorded Confirmed Last Taken calcium carbonate 600 mg-vitamin 2 cap PO QAM 07/15/19 04/10/23 08/19/21 D3 5 mcg (200 unit) capsule (Calcium 600 + D(3)) sertraline 50 mg tablet 50 mg PO DAILY 05/31/22 04/10/23 Unknown aspirin 81 mg tablet,delayed 81 mg PO DAILY 08/21/22 04/10/23 Unknown release (Adult Low Dose Aspirin) meclizine 12.5 mg tablet 12.5 mg PO TID PRN dizziness #20 01/18/23 04/10/23 Unknown tabs biotin 10 mg tablet 10 mg PO DAILY 04/10/23 04/10/23 Unknown ketoconazole 2 % shampoo 1 applic topical DIRECTED PRN 04/10/23 04/10/23 Unknown NEEDED PER EXT MED HX. melatonin 3 mg tablet 0 mg PO HS PRN Sleep 04/10/23 04/10/23 Unknown Active Medications Generic Name Dose Route Start Last Admin Trade Name Freq PRN Reason Stop Dose Admin Hydromorphone HCl 1 mg 04/10/23 19:41 04/11/23 05:54 Hydromorphone Inj 1 Mg/Ml Syringe IV 04/24/23 19:40 1 mg Q3H PRN Administration Severe Pain (7,8,9,10) on NRS Parenteral Electrolytes 1,000 mls @ 80 mls/hr 04/10/23 22:15 04/10/23 22:24 Plasma-Lyte A Ph 7.4 IV 05/10/23 22:14 80 mls/hr .[id number] GT Administration Melatonin 9 mg 04/10/23 22:15 04/10/23 22:27 Melatonin 3 Mg Tab PO 05/10/23 22:14 9 mg HS PRN Administration Sleep Senna/Docusate Sodium 2 tab 04/10/23 21:00 04/10/23 20:36 Docusate Sodium/Senna 50/8.6mg Tab PO 05/10/23 20:59 2 tab HS GT Administration Sertraline HCl 50 mg 04/11/23 09:00 04/11/23 07:59 Sertraline Hcl 50 Mg Tablet PO 05/11/23 08:59 50 mg DAILY GT Administration NPO Date Last Intake of Fluids: 04/10/23 Time Last Intake of Fluids: 23:00 Past Medical History Medical History Anxiety and depression controlled per pt Chronic headaches chronic, follows with PCP, denies change or worsening Hearing deficit B/L HDEZ History of urinary incontinence Urge and Stress Hypercholesterolemia Osteoporosis Presence of pessary Past Family History Family History Sister Diabetes Father Cancer Other Family history non-contributory Past Surgical History Surgical History H/O: hysterectomy + bilateral ovary removal History of cataract surgery History of colonoscopy History of tonsillectomy and adenoidectomy History of wisdom tooth extraction Status post urinary system surgery Implant placed (in back) for urinary incontinence Tonsillectomy Social History Smoking Status: Unknown if ever smoked Do You Dip or Chew Tobacco: No substance use type: does not use Physical Exam Vital Signs Last Vital Signs Temp 97.3 F L 04/11/23 07:06 Pulse 77 04/11/23 07:06 Resp 16 04/11/23 07:06 BP 126/69 04/11/23 07:06 Pulse Ox 98 04/11/23 07:06 O2 Del Method Nasal Cannula 04/11/23 07:25 O2 Flow Rate 1 04/11/23 07:25 Testing Laboratory Results 04/11/23 06:02 04/11/23 06:02 Blood Type AB Negative 04/10/23 17:55 Antibody Screen NEGATIVE 04/10/23 17:55 Electrocardiogram Date: 04/10/23 Sinus rhythm with Premature atrial complexes, rate 71 bpm Low voltage QRS Left anterior fascicular block Abnormal ECG When compared with ECG of 18-JAN-2023 09:05, Premature atrial complexes are now Present Nonspecific T wave abnormality now evident in Anterior leads Chest X-Ray Date: 04/10/23 Findings: + NAD
[2023-04-11] MEDS: PLASMA-LYTE A 1,000 ML IV SCH (10:56)
[2023-04-11] MEDS: HYDROmorphone INJ 0.5 MG/0.5 ML SYR IV PRN ×2 (13:04→20:00)
[2023-04-11] MEDS ORDERED: LIDOCAINE 2% 2 ML VIAL/AMP(20MG/ML) INFIL ONE (15:08)
[2023-04-11] MEDS ORDERED: PROPOFOL IV EMULSION 10 MG/ML 20 ML VIAL IV ONE ×2 (15:08→16:41)
[2023-04-11] MEDS ORDERED: BUPIVACAINE 0.5 % 5 MG/1 ML PF 10ML VIAL ONE (15:25)
[2023-04-11] MEDS ORDERED: fentaNYL citrate PF 100 MCG/2 ML VIAL IV PRN (15:37)
[2023-04-11] MEDS ORDERED: ATROPINE SULFATE 0.1 MG/ML 10ML SYR IV PRN (15:37)
[2023-04-11] MEDS ORDERED: ePHEDrine sulfate 50 MG/ML AMP IV PRN (15:37)
[2023-04-11] MEDS ORDERED: ONDANSETRON INJ 2 MG/ML 2 ML VIAL IV PRN (15:37)
--- NOTE | 2023-04-11 15:37 | Hospitalist Progress Note ---
Date of Service April 11, 2023 Assessment & Plan (1) Closed fracture of neck of right femur: Plan: Acute right hip fracture Right leg externally rotated and shortened No neurovascular compromise At the bedside patient was not any signs or symptoms of heart failure and given her memory impairment she did deny any unstable anginal symptoms RCRI: Normal risk surgery, Doss catheter placed Depression Continue sertraline Bladder incontinence mixed, - history of stimulator s/p removal Removed 08/2021 in order to obtain MRI. Follows with [facility] and has pessary placed every few months Doss placed for hip fracture DVT prophylaxis: SCDs, heparin, hold prior to surgery. Surgery anticipated 04/11 May resume regular diet post surgery CODE STATUS: DNR/DNI. PT OT postsurgery anticipate need for placement for rehab Admission and Anticipated Discharge Date Admission Date: April 10, 2023 Subjective Patient was seen she was significantly confused she is pleasant but cannot tell me the date or time or president Pain control seems to be adequate Review of Systems Review of Systems: Unobtainable due to cognitive status Physical Exam Physical Exam: She is awake she will follow commands she is oriented that she was in the hospital she was unaware of exact reason why she was in the hospital Card exam is regular lungs were clear abdomen NABS soft Her right leg was slightly shortened and externally rotated pulses and capillary refill were intact distally Results & Data Results & Data Vital Signs (Past 12 Hours) Vital Signs Temp Pulse Resp BP Pulse Ox O2 Del Method O2 Flow Rate 04/11/23 15:11 97.9 F 83 20 91 Room Air 04/11/23 07:25 Nasal Cannula 1 04/11/23 07:06 97.3 F L 77 16 126/69 98 Nasal Cannula 2 Laboratory Results Reviewed CBC reviewed chemistry PG Care Time/CCT Total # of Minutes Spent Total Time Spent with Patient: Total time spent is greater than 50% in coordination of care (as documented) at patient's floor/unit and/or counseling patient: Coding Level of Care Code 46988 SUB INP/OBS CARE 2/35MIN Diagnoses Closed fracture of neck of right femur S72.001A
--- NOTE | 2023-04-11 15:53 | History & Physical Bridge Note ---
Date of Service April 11, 2023 History & Physical Bridge Note I have examined the patient, reviewed the History & Physical and in the interval since the performance of the History & Physical I have noted the following changes of clinical significance: no changes noted. Spoke with patients son and discussed risks/benefits of right hip hemiarthoplasty. After reviewing, telephone consent obtained.
[2023-04-11] MEDS ORDERED: THROMBIN FOR SOLN 20000 UNIT KIT ONE (16:03)
[2023-04-11] MEDS ORDERED: fentaNYL citrate PF 100 MCG/2 ML VIAL ONE (16:10)
[2023-04-11] MEDS ORDERED: BUPIVACAINE 0.25% PF 30 ML VIAL ONE (16:23)
[2023-04-11] MEDS ORDERED: ONDANSETRON INJ 2 MG/ML 2 ML VIAL ONE (16:41)
[2023-04-11] MEDS ORDERED: ePHEDrine sulfate 50 MG/ML AMP ONE (16:43)
[2023-04-11] MEDS ORDERED: SODIUM CHLORIDE 0.9% PF INJ 10 ML VIAL ONE (16:43)
[2023-04-11] MEDS ORDERED: ceFAZolin 330 MG/ML 1 GM VIAL ONE (16:47)
[2023-04-11] MEDS ORDERED: ceFAZolin 2000MG 2,000 MG/15 ML SYR IV ONE (17:13)
--- NOTE | 2023-04-11 17:33 | Post Operative Brief Note ---
Immediate Post Op Note v1 Date of Surgery April 11, 2023 Pre & Post Diagnosis Operation Date: 04/11/23 09:15 Pre-Op Diagnosis: Right Hip Fracture Post-Op Diagnosis: Right Hip Fracture I identified the patient and participated in the time-out.: Yes Procedure Operation Date: 04/11/23 09:15 Actual Procedures p Right Hip Hemiarthroplasty - Uncemented(Right) - Luis F Salazar DO Surgeon Luis F Salazar DO Instructor Weaving none Estimated Blood Loss 75 Findings Consistent with Post-Op Diagnosis see dictation Drains Rios Catheter (patient arrived to OR with rios catheter intact) Complications none
--- NOTE | 2023-04-11 18:06 | XRay Report ---
SINGLE VIEW PELVIS CLINICAL HISTORY: Postoperative examination. FINDINGS: An AP, portable, supine pelvic radiograph is compared to study dated 04/10/2023. A right hip arthroplasty is in near anatomic alignment. No acute fracture is seen. Moderate to advanced arthritic change and joint space narrowing is seen in the left hip. There is mild degenerative sclerosis of th e sacroiliac joints. Skin clips, subcutaneous gas, and soft tissue edema overlying the right hip are expected postoperative changes. IMPRESSION: Expected postsurgical findings status post right hip arthroplasty. No acute fracture is s een. Electronically signed by: Ander Vigil M.D. 04/11/2023 6:04 PM
[2023-04-11] MEDS: SODIUM CHLORIDE 0.9% 1000ML 1,000 ML IV SCH (18:41)
--- NOTE | 2023-04-11 19:48 | Anesthesiology Progress Note ---
Date of Service April 11, 2023 Anesthesia Post Procedure Vital Signs Vital Signs: Temp Pulse Pulse Pulse Pulse Resp BP 04/11/23 19:01 36.4 C L 83 18 04/11/23 18:25 36.6 C 78 18 04/11/23 18:15 82 20 04/11/23 18:05 36.3 C L 79 18 04/11/23 17:55 78 14 04/11/23 17:45 76 18 04/11/23 17:35 36.3 C L 76 12 04/11/23 15:11 36.6 C 83 20 04/11/23 07:25 04/11/23 07:06 36.3 C L 77 16 04/10/23 22:00 04/10/23 22:00 36.9 C 78 16 04/10/23 21:32 81 18 175/67 H 04/10/23 21:30 89 42 H 04/10/23 21:20 78 19 04/10/23 21:10 83 30 H 120/72 04/10/23 21:37 04/10/23 21:00 76 33 H 120/72 04/10/23 20:50 78 31 H 04/10/23 20:40 90 22 04/10/23 20:30 85 29 H 180/109 H 04/10/23 20:20 76 39 H 04/10/23 20:10 76 28 H 04/10/23 20:00 86 27 H 178/88 H 04/10/23 19:50 85 24 BP Pulse Ox O2 Del Method O2 Flow Rate 04/11/23 19:01 138/70 98 Nasal Cannula 2 04/11/23 18:25 130/71 93 Room Air 04/11/23 18:15 133/64 94 Room Air 04/11/23 18:05 140/55 L 95 Room Air 04/11/23 17:55 145/62 H 99 Oxymask 4 04/11/23 17:45 145/58 H 100 Oxymask 4 04/11/23 17:35 135/58 L 99 Oxymask 6 04/11/23 15:11 91 Room Air 04/11/23 07:25 Nasal Cannula 1 04/11/23 07:06 126/69 98 Nasal Cannula 2 04/10/23 22:00 Nasal Cannula 1.5 04/10/23 22:00 150/79 H 94 Nasal Cannula 1.5 04/10/23 21:32 95 04/10/23 21:30 92 04/10/23 21:20 94 04/10/23 21:10 96 04/10/23 21:37 Room Air 04/10/23 21:00 93 04/10/23 20:50 93 04/10/23 20:40 99 04/10/23 20:30 97 04/10/23 20:20 95 04/10/23 20:10 96 04/10/23 20:00 88 L 04/10/23 19:50 93 Pain Intensity Right Hip: Pain Intensity: 0 Transfer of Care Handoff Completed per policy Notes Mental Status: alert / awake / arousable (at baseline mental status) Patient Amnestic to Procedure: Yes Nausea / Vomiting: adequately controlled Pain: adequately controlled Airway Patency, RR, SpO2: stable & adequate BP & HR: stable & adequate Hydration State: stable & adequate Neuraxial Anesthesia: was administered and sensory block is resolving Anesthetic Complications: no major complications apparent and Pt Satisfied with anesthetic care
[2023-04-11] MEDS: ASPIRIN 81 MG ECTAB PO SCH (20:03)
[2023-04-11] MEDS: DOCUSATE SODIUM/SENNA 50/8.6MG TAB PO SCH (20:06)
[2023-04-12] MEDS: HYDROmorphone INJ 0.5 MG/0.5 ML SYR IV PRN ×4 (00:47→16:36)
[2023-04-12] MEDS: ceFAZolin 1000MG 1,000 MG/7.5 ML SYR IV SCH ×2 (00:50→08:03)
[2023-04-12] MEDS: ACETAMINOPHEN 1,000 MG/100 ML VIAL IV PRN (02:32)
[2023-04-12] MEDS: SODIUM CHLORIDE 0.9% 1000ML 1,000 ML IV SCH ×2 (07:02→16:34)
--- NOTE | 2023-04-12 07:16 | Orthopedic Consultation ---
Date of Consultation April 11, 2023 Assessment & Plan (1) Closed fracture of neck of right femur: 87-year-old female with displaced right femoral neck fracture N.p.o. Nonweightbearing right extremity Bedrest Pain control DVT prophylaxis per hour Medical management Plan for right hip hemiarthroplasty History of Present Illness Attending Physician: Blas Ly MD History of Present Illness 87-year-old pleasantly demented female presenting after sustaining a ground- level fall onto her right side. Immediately afterward she noted pain and deformity and was unable to weight-bear. The emergency department radiographs were taken demonstrating a displaced right femoral neck fracture. Patient was admitted to medical service and orthopedics was consulted for operative m anagement. Allergies Allergy/AdvReac Type Severity Reaction Status Date / Time No Known Allergies Allergy Verified 04/10/23 17:33 Home Medications Medication Instructions Recorded Confirmed Type calcium carbonate 600 mg-vitamin 2 cap PO QAM 07/15/19 04/10/23 History D3 5 mcg (200 unit) capsule (Calcium 600 + D(3)) sertraline 50 mg tablet 50 mg PO DAILY 05/31/22 04/10/23 History aspirin 81 mg tablet,delayed 81 mg PO DAILY 08/21/22 04/10/23 History release (Adult Low Dose Aspirin) meclizine 12.5 mg tablet 12.5 mg PO TID PRN dizziness #20 01/18/23 04/10/23 Rx tabs biotin 10 mg tablet 10 mg PO DAILY 04/10/23 04/10/23 History ketoconazole 2 % shampoo 1 applic topical DIRECTED PRN 04/10/23 04/10/23 History NEEDED PER EXT MED HX. melatonin 3 mg tablet 0 mg PO HS PRN Sleep 04/10/23 04/10/23 History Patient History Medical History Anxiety and depression controlled per pt Chronic headaches chronic, follows with PCP, denies change or worsening Hearing deficit B/L HDEZ History of urinary incontinence Urge and Stress Hypercholesterolemia Osteoporosis Presence of pessary Surgical History H/O: hysterectomy + bilateral ovary removal History of cataract surgery History of colonoscopy History of tonsillectomy and adenoidectomy History of wisdom tooth extraction Status post urinary system surgery Implant placed (in back) for urinary incontinence Tonsillectomy Family History Sister Diabetes Father Cancer Other Family history non-contributory Social History Smoking Status: Unknown if ever smoked Tobacco Type: Cigarettes Second Hand Exposure: No; Do You Dip or Chew Tobacco: No; Preferred Language: Brazilian Communication Ability: Impaired Public Health Educator Required: No Beliefs That Will Affect Care: None marital status: / Current Living Situation: Personal Care Facility current occupational status: retired Feels Safe at Home: Yes Assistive Devices: Cane and Walker Physical Exam Physical Exam: No acute distress, oriented to self Musculoskeletal: Right lower extremity -Shortened and externally rotated -Pulse logroll -Neurovascular exam limited secondary to patient's mental status, patient is able to spontaneously wiggle her toes and plantarflex dorsiflex her foot. Brisk capillary refill over digits and palpable dorsalis pedis and posterior tibial pulses Results & Data Vital Signs (Past 12 Hours) Vital Signs Temp Pulse Resp BP Pulse Ox O2 Del Method O2 Flow Rate 04/12/23 02:36 36.8 C 97 H 18 136/63 96 Nasal Cannula 2 04/11/23 20:00 Nasal Cannula 2 04/11/23 22:41 36.6 C 98 H 16 132/63 96 Nasal Cannula 2 04/11/23 20:00 36.3 C L 97 H 18 125/65 96 Nasal Cannula 2 04/11/23 19:30 36.5 C 98 H 20 169/72 H 98 Nasal Cannula 2 Diagnostic Findings Radiographs of the right hip demonstrate displaced right femoral neck fracture
--- NOTE | 2023-04-12 07:22 | Operative Report ---
Post Operative Report Pre & Post Diagnosis Operation Date: 04/11/23 09:15 Pre-Op Diagnosis: Right Hip Fracture Post-Op Diagnosis: Right Hip Fracture I identified the patient and participated in the time-out.: Yes Procedure Operation Date: 04/11/23 09:15 Actual Procedures p Right Hip Hemiarthroplasty - Uncemented(Right) - Luis F Salazar DO Surgeon Luis F Salazar DO Performance Improvement Analyst none Estimated Blood Loss 75 Findings Consistent with Post-Op Diagnosis See dictation Specimens Femoral head Complications None Indications 87-year-old female presenting after sustaining a ground-level fall onto her right side. Radiographs were obtained demonstrate displaced right femoral neck fracture. I met with the patient had a discussion with her son who is POA. We had a discussion regarding Potential complications of right hip hemiarthroplasty. These include not limited to infection, neurovascular, DVT, fracture, dislocation, leg length and need for future surgery. After reviewing these elected to proceed with surgical intervention and telephone consent was obtained. Description of Procedure Implants: [place] Accolade two 127 degree neck angle hip stem size #6, [place] LF IT V40 femoral head 26 mm outside diameter with +0 mm offset, universal head bipolar component 49 mm outside diameter Patient was appropriate identified in preoperative holding area and the right lower extremity was marked. She was then taken back to the operative suite where she received antibiotics per protocol for spinal anesthesia. She was positioned in the lateral decubitus position with the right hip facing upwards using hip positioners. She was then prepped and draped in standard orthopedic fashion a timeout was then performed. Incision was made over the posterior lateral aspect of the trochanter with a scalpel. Cautery was used to dissected subcutaneous tissue down to the IT band and gluteal fascia which was then split in line with the incision. Trauma retractor was then placed. External rotators were then identified and tagged and reflected off the posterior capsule. T capsulotomy was then performed for fracture hematoma was noted. Inferior capsular limb was then tagged. Femoral head is noted be completely displaced. A tenaculum was used to remove the femoral head from the acetabulum. Head is then sized on the back table. A femoral neck osteotomy was then made approximately 1 fingerbreadth above the tip of the lesser trochanter. Any residual bone fragments were then removed from the femoral neck and the acetabulum. Trialing was then performed with femoral head and a 49 mm head was noted to have excellent suction fit. Attention was then turned to preparation of the femoral canal. Started with a box osteotome followed by canal finder reamer the canal was then sequentially broached up to a size 6 stem which was noted to have excellent fit and fill. Trialing was then performed with a 127 degree neck angle and 49 mm head with +0 mm offset. Hip was successfully reduced. Leg lengths as well stability in flexion extension internal and external rotation were all assessed and noted to be satisfactory. Hip was then successfully dislocated. All trial components were removed. It was thoroughly irrigated with Betadine solution followed by normal saline solution. The femoral stem was then impacted into the femoral canal under direct visualization of the calcar. Trunnion was then irrigated and dried and a 49 mm bipolar head with + millimeter offset was then impacted onto the trunnion. The hip was then successfully relocated. Once again range of motion as well as leg lengths and stability were assessed and noted to be satisfactory. At this point the T capsulotomy was then closed in [id number] fashion using 0 Ethibond suture. The [place]arnley retractor was then removed. IT band gluteal fascia was then closed in a [id number] fashion using 0 Ethibond suture followed by running oh strata fix suture. Subcutaneous tissues were then copiously irrigated using dilute Betadine solution followed by normal saline solution. Core percent Marcaine was then injected into the subcutaneous tissues and IT band fascia. Deep subcutaneous closure was then performed using a running 2-0 Vicryl suture. Superficial subcutaneous closure was then performed using a running 2 oh strata fix suture. [place] were used to close the skin. A sterile Silverlon dressing was placed. Patient tolerated procedure well was taken recovery room in hemodynamically stable condition. I attest to the content of the Intraoperative Record and any orders documented therein. Any exceptions are noted below.
--- NOTE | 2023-04-12 07:49 | Orthopedic Progress Note ---
Date of Service April 12, 2023 Assessment & Plan (1) Closed fracture of neck of right femur: Plan: 87 yo female stable POD #1 s/p right hip hemiarthroplasty 1. Med management 2. DVT prophylaxis- ASA, SCDs 3. PT/OT 4. D/C planning- Admission and Anticipated Discharge Date Admission Date: April 10, 2023 Subjective Pt resting in bed, alert & oriented, answering appropriately, denies pain Physical Exam Physical Exam: Silverlon dressing in place, thigh soft, toes mobile, NVI Results & Data Vital Signs (Past 12 Hours) Vital Signs Temp Pulse Resp BP Pulse Ox O2 Del Method O2 Flow Rate 04/12/23 07:23 36.7 C 95 H 16 145/69 H 93 Nasal Cannula 2 04/12/23 02:36 36.8 C 97 H 18 136/63 96 Nasal Cannula 2 04/11/23 20:00 Nasal Cannula 2 04/11/23 22:41 36.6 C 98 H 16 132/63 96 Nasal Cannula 2 04/11/23 20:00 36.3 C L 97 H 18 125/65 96 Nasal Cannula 2
[2023-04-12] MEDS: ASPIRIN 81 MG ECTAB PO SCH ×2 (07:56→20:26)
[2023-04-12] MEDS: SERTRALINE HCL 50 MG TABLET PO SCH (07:56)
[2023-04-12 08:26] LABS: Basophils # (auto) 0.02 K/uL (0-0.2); Basophils % (auto) 0.2 %; Hematocrit (blood only) 34.1 % (37.0-47.0); Immature Granulocytes # (auto) 0.03 K/uL (0.01-0.20); Immature Granulocytes % (auto) 0.3 %; Lymphocytes # (auto) 0.52 K/uL (1.2-3.4); Mean Corpuscular Hemoglobin 27.6 pg (25.0-34.0); Mean Corpuscular Hgb Conc 32.3 g/dL (32.0-36.0); Mean Corpuscular Volume 85.5 fL (80.0-100.0); Monocytes # (auto) 1.28 K/uL (0.11-0.59); Monocytes % (auto) 12.2 %; Neutrophils # (auto) 8.62 K/uL (1.40-6.50); Neutrophils % (auto) 82.3 %; Platelet Count 203 K/uL (130-400); RDW Coefficient of Variation 14.3 % (11.5-14.5); RDW Standard Deviation 44.3 fL (36.4-46.3); Red Blood Count 3.99 M/uL (4.20-5.40); White Blood Count 10.47 K/ul (4.8-10.8)
[2023-04-12 08:40] LABS: BUN Creatinine Ratio 19.3 (10-20); Calcium 8.9 mg/dl (8.6-10.3); Creatinine Clr Calc Pharmacy 42.4 ml/min; Est GFR (African American) 72.5 ml/min; Est GFR (Non-African American) 62.5 ml/min; Potassium 3.9 mmol/L (3.5-5.1)
--- NOTE | 2023-04-12 11:51 | Hospitalist Progress Note ---
Date of Service April 12, 2023 Assessment & Plan (1) Closed fracture of neck of right femur: Plan: Acute right hip fracture *Age-related osteoporosis w current path fracture, right femur Patient vitamin D deficient vitamin D oral supplementation started Depression Continue sertraline, patient seems to have fairly significant dementia Bladder incontinence mixed, - history of stimulator s/p removal Removed 08/2021 in order to obtain MRI. Follows with [facility] and has pessary placed every few months Doss placed for hip fracture DVT prophylaxis: SCDs, heparin, hold prior to surgery. Surgery anticipated 04/11 regular diet post surgery CODE STATUS: DNR/DNI. PT OT postsurgery anticipate need for placement for rehab Admission and Anticipated Discharge Date Admission Date: April 10, 2023 Subjective Patient remains fairly significantly confused not even oriented to place but is oriented to person Physical Exam Physical Exam: She is awake she will follow commands she is oriented that she was in the hospital she was unaware of exact reason why she was in the hospital Card exam is regular lungs were clear abdomen NABS soft Her right leg was slightly shortened and externally rotated pulses and capillary refill were intact distally Results & Data Results & Data Vital Signs (Past 12 Hours) Vital Signs Temp Pulse Resp BP Pulse Ox O2 Del Method O2 Flow Rate 04/12/23 10:57 97.5 F L 102 H 17 126/75 95 Nasal Cannula 2 04/12/23 08:07 Nasal Cannula 2 04/12/23 07:23 98.1 F 95 H 16 145/69 H 93 Nasal Cannula 2 04/12/23 02:36 98.2 F 97 H 18 136/63 96 Nasal Cannula 2 PG Care Time/CCT Total # of Minutes Spent Total Time Spent with Patient: Total time spent is greater than 50% in coordination of care (as documented) at patient's floor/unit and/or counseling patient: Coding Level of Care Code 93024 SUB INP/OBS CARE 2/35MIN Diagnoses Closed fracture of neck of right femur S72.001A
--- NOTE | 2023-04-12 20:01 | Electrocardiogram Report ---
Test Reason : Blood Pressure : / mmHG Vent. Rate : 071 BPM Atrial Rate : 071 BPM P-R Int : 148 ms QRS Dur : 084 ms QT Int : 428 ms P-R-T Axes : 046 -48 010 degrees QTc Int : 465 ms Poor data quality, interpretation may be adversely affected Sinus rhythm with Premature atrial complexes Low voltage QRS Left anterior fascicular block Abnormal ECG When compared with ECG of 18-JAN-2023 09:05, Premature atrial complexes are now Present Confirmed by Vladimir Porras ([id number]) on 04/12/2023 8:00:48 PM Referred By: [facility] Confirmed By:Vladimir Porras
[2023-04-12] MEDS: HYDROmorphone INJ 1 MG/ML SYRINGE IV PRN (20:26)
[2023-04-12] MEDS: MELATONIN 3 MG TAB PO PRN (20:26)
[2023-04-12] MEDS: DOCUSATE SODIUM/SENNA 50/8.6MG TAB PO SCH (22:33)
[2023-04-13] MEDS: SODIUM CHLORIDE 0.9% 1000ML 1,000 ML IV SCH ×3 (00:13→16:21)
--- NOTE | 2023-04-13 06:19 | Orthopedic Progress Note ---
Date of Service April 13, 2023 Assessment & Plan (1) Closed fracture of neck of right femur: Plan: 87 yo female stable POD #2 s/p right hip hemiarthroplasty 1. Med management 2. DVT prophylaxis- ASA, SCDs 3. PT/OT= [facility] ortho to sign off, discharge instructions placed in chart. she can f/u with Dr Salazar at [facility] [place] in 12-14 days. [phone] for appt Admission and Anticipated Discharge Date Admission Date: April 10, 2023 Subjective POD #2 s/p Right Hip Hemiarthroplasty patient confused this am, does not remember her hip surgery Physical Exam Physical Exam: Silverlon dressing in place, thigh soft, toes mobile, NVI Results & Data Vital Signs (Past 12 Hours) Vital Signs Temp Pulse Resp BP Pulse Ox O2 Del Method 04/12/23 20:38 36.5 C 109 H 18 143/63 H 94 Room Air
[2023-04-13] MEDS: ACETAMINOPHEN 1,000 MG/100 ML VIAL IV PRN ×2 (07:46→15:48)
[2023-04-13 07:54] LABS: Basophils # (auto) 0.02 K/uL (0-0.2); Basophils % (auto) 0.1 %; Hemoglobin 10.6 g/dl (12.0-16.0); Immature Granulocytes # (auto) 0.08 K/uL (0.01-0.20); Immature Granulocytes % (auto) 0.6 %; Lymphocytes # (auto) 0.46 K/uL (1.2-3.4); Lymphocytes % (auto) 3.3 %; Mean Corpuscular Hemoglobin 27.5 pg (25.0-34.0); Mean Corpuscular Hgb Conc 32.1 g/dL (32.0-36.0); Mean Corpuscular Volume 85.5 fL (80.0-100.0); Mean Platelet Volume 10.7 fL (9.4-12.4); Monocytes # (auto) 1.24 K/uL (0.11-0.59); Monocytes % (auto) 8.9 %; Neutrophils # (auto) 12.15 K/uL (1.40-6.50); Neutrophils % (auto) 87.1 %; Platelet Count 210 K/uL (130-400); RDW Coefficient of Variation 14.6 % (11.5-14.5); RDW Standard Deviation 45.6 fL (36.4-46.3); Red Blood Count 3.86 M/uL (4.20-5.40); White Blood Count 13.95 K/ul (4.8-10.8)
[2023-04-13 07:59] LABS: BUN Creatinine Ratio 26.1 (10-20); Calcium 9.1 mg/dl (8.6-10.3); Est GFR (African American) 89.5 ml/min; Est GFR (Non-African American) 77.2 ml/min; Potassium 3.7 mmol/L (3.5-5.1)
[2023-04-13] MEDS: SERTRALINE HCL 50 MG TABLET PO SCH (08:18)
[2023-04-13] MEDS: ASPIRIN 81 MG ECTAB PO SCH ×2 (08:18→20:06)
[2023-04-13] MEDS: CHOLECALCIFEROL 1,000 UNITS 25 MCG TAB PO SCH (08:22)
[2023-04-13] MEDS ORDERED: carvediloL 3.125 MG TAB PO ONE (08:45)
--- NOTE | 2023-04-13 14:20 | Hospitalist Progress Note ---
Date of Service April 13, 2023 Assessment & Plan (1) Closed fracture of neck of right femur: Plan: Acute right hip fracture *Age-related osteoporosis w current path fracture, right femur right hip hemiarthroplasty 04/11/2023 Dr. Salazar Patient vitamin D deficient vitamin D oral supplementation started Depression Continue sertraline, patient seems to have fairly significant dementia Bladder incontinence mixed, - history of stimulator s/p removal Removed 08/2021 in order to obtain MRI. Follows with VOLTAGE INSPECTOR and has pessary placed every few months Doss placed for hip fracture DVT prophylaxis: SCDs, heparin, hold prior to surgery. Surgery anticipated 04/11 regular diet post surgery CODE STATUS: DNR/DNI. PT OT postsurgery anticipate need for placement for rehab Admission and Anticipated Discharge Date Admission Date: April 10, 2023 Subjective POD #2 s/p Right Hip Hemiarthroplasty patient confused this am, does not remember her hip surgery Physical Exam Physical Exam: She is awake she will follow commands she is oriented that she was in the hospital she was unaware of exact reason why she was in the hospital Card exam is regular lungs were clear abdomen NABS soft pulses and capillary refill were intact distally Results & Data Results & Data Vital Signs (Past 12 Hours) Vital Signs Temp Pulse Resp BP Pulse Ox O2 Del Method 04/13/23 08:49 97 H 136/74 04/13/23 07:39 155/71 H 04/13/23 07:14 97.7 F 102 H 18 170/75 H 96 Room Air Laboratory Results reviewed CBC reviewed chemistry PG Care Time/CCT Total # of Minutes Spent Total Time Spent with Patient: Total time spent is greater than 50% in coordination of care (as documented) at patient's floor/unit and/or counseling patient: Coding Level of Care Code 25323 SUB INP/OBS CARE 2/35MIN Diagnoses Closed fracture of neck of right femur S72.001A
[2023-04-13] MEDS: carvediloL 3.125 MG TAB PO SCH (17:10)
[2023-04-13] MEDS: DOCUSATE SODIUM/SENNA 50/8.6MG TAB PO SCH (20:06)
[2023-04-13] MEDS: HYDROmorphone INJ 0.5 MG/0.5 ML SYR IV PRN (22:41)
[2023-04-14] MEDS: SODIUM CHLORIDE 0.9% 1000ML 1,000 ML IV SCH ×2 (00:03→08:51)
[2023-04-14] MEDS: HYDROmorphone INJ 0.5 MG/0.5 ML SYR IV PRN (05:25)
--- NOTE | 2023-04-14 07:36 | Hospitalist Progress Note ---
Date of Service April 14, 2023 Assessment & Plan (1) Closed fracture of neck of right femur: Plan: Acute right hip fracture *Age-related osteoporosis w current path fracture, right femur right hip hemiarthroplasty 04/11/2023 Dr. Salazar Patient vitamin D deficient vitamin D oral supplementation started Depression Continue sertraline, patient seems to have fairly significant dementia Bladder incontinence mixed, - history of stimulator s/p removal Removed 08/2021 in order to obtain MRI. Follows with HIGH SCHOOL MUSIC DIRECTOR and has pessary placed every few months Doss placed for hip fracture DVT prophylaxis: SCDs, heparin, hold prior to surgery. Surgery anticipated 04/11 regular diet post surgery CODE STATUS: DNR/DNI. PT OT postsurgery anticipate need for placement for rehab Admission and Anticipated Discharge Date Admission Date: April 10, 2023 Subjective pt is doing well, but still not eating well, pain is fair control with tylenol Physical Exam Physical Exam: She is awake she will follow commands she is oriented that she was in the hospital she was unaware of exact reason why she was in the hospital Card exam is regular lungs were clear abdomen NABS soft pulses and capillary refill were intact distally Results & Data Results & Data Vital Signs (Past 12 Hours) Vital Signs Temp Pulse Resp BP Pulse Ox O2 Del Method 04/13/23 19:55 98.6 F 80 18 120/68 93 Room Air PG Care Time/CCT Total # of Minutes Spent Total Time Spent with Patient: Total time spent is greater than 50% in coordination of care (as documented) at patient's floor/unit and/or counseling patient: Coding Level of Care Code 80643 SUB INP/OBS CARE 1/25MIN Diagnoses Closed fracture of neck of right femur S72.001A
[2023-04-14] MEDS: ACETAMINOPHEN 500 MG TAB PO SCH ×3 (08:09→20:27)
[2023-04-14] MEDS: SERTRALINE HCL 50 MG TABLET PO SCH (08:11)
[2023-04-14] MEDS: CHOLECALCIFEROL 1,000 UNITS 25 MCG TAB PO SCH (08:11)
[2023-04-14] MEDS: ASPIRIN 81 MG ECTAB PO SCH ×2 (08:11→20:27)
[2023-04-14] MEDS: carvediloL 3.125 MG TAB PO SCH ×2 (08:12→17:09)
[2023-04-14] MEDS ORDERED: POLYETHYLENE (MIRALAX) 17 GM PACK PO ONE (12:06)
[2023-04-14] MEDS: DOCUSATE SODIUM/SENNA 50/8.6MG TAB PO SCH (20:27)
[2023-04-15] MEDS: HYDROmorphone INJ 0.5 MG/0.5 ML SYR IV PRN ×2 (00:47→04:28)
[2023-04-15] MEDS: carvediloL 3.125 MG TAB PO SCH (07:18)
[2023-04-15 07:22] LABS: Hematocrit (blood only) 30.9 % (37.0-47.0); Hemoglobin 10.2 g/dl (12.0-16.0); Mean Corpuscular Hemoglobin 27.3 pg (25.0-34.0); Mean Corpuscular Volume 82.8 fL (80.0-100.0); Mean Platelet Volume 10.2 fL (9.4-12.4); Platelet Count 276 K/uL (130-400); RDW Standard Deviation 42.5 fL (36.4-46.3); Red Blood Count 3.73 M/uL (4.20-5.40); White Blood Count 9.54 K/ul (4.8-10.8)
[2023-04-15 07:42] LABS: BUN Creatinine Ratio 32.1 (10-20); Calcium 8.8 mg/dl (8.6-10.3); Creatinine Clr Calc Pharmacy 62.8 ml/min; Est GFR (African American) 95.8 ml/min; Est GFR (Non-African American) 82.7 ml/min; Potassium 3.4 mmol/L (3.5-5.1)
[2023-04-15] MEDS ORDERED: POTASSIUM CHLORIDE CRTAB 20 MEQ TABCR PO STA (07:52)
[2023-04-15] MEDS ORDERED: carvediloL 6.25 MG TAB PO SCH (08:00)
[2023-04-15] MEDS: ACETAMINOPHEN 500 MG TAB PO SCH ×2 (08:37→14:27)
[2023-04-15] MEDS: SERTRALINE HCL 50 MG TABLET PO SCH (08:38)
[2023-04-15] MEDS: ASPIRIN 81 MG ECTAB PO SCH (08:38)
[2023-04-15] MEDS: CHOLECALCIFEROL 1,000 UNITS 25 MCG TAB PO SCH (08:39)
[2023-04-15] MEDS ORDERED: POLYETHYLENE (MIRALAX) 17 GM PACK PO SCH (09:00)
--- NOTE | 2023-04-15 15:39 | Discharge Summary ---
Date of Service April 15, 2023 Admission HPI Per Admitting Provider Paola is an 87-year-old female with a past medical history of UTI, urge and stress incontinence, hyperlipidemia, osteoporosis, hysterectomy who presents to the ER 04/10 with right hip pain after she was squatting putting weight books when her leg gave out calling her to roll on her buttocks with immediate pain radiating into her right hip and inability to bear weight. She had no lightheadedness/dizziness that contributed to her fall. Paola is seen at the bedside. She is limited historian somewhat forgetful, but is oriented to name, place, and year and is able to give a reasonable history. She reports she was squatted down and putting books away when she just felt like she tilted to the side and her leg gave out causing her to strike her right but on the floor. She immediately had pain and inability to move or stand on her right leg. She has never had pain like this before. She does not have any chest pain, chest pressure, dizziness, lightheadedness, syncope, or presyncope that led to her fall. He does not have any numbness or tingling in her legs. She does not think she is taking aspirin, she reports she has no history of heart failure and has never had a stroke but does have some forgetfulness and memory issues. She had a device for bladder stimulation in the past, this was removed years ago and now she only uses a pessary and follows with POLISHING MACHINE OPERATOR HELPER. Denies other hardware. No fever, chills. No nausea. She reports she does have 8/10 pain in her right hip at time of assessment Medical History: Reviewed Medications: Reviewed Surgical History: Reviewed Family history: Reviewed Allergies: Reviewed Social History: No tobacco, no etoh. Code Status:DNR/DNI Principal Diagnosis Right proximal femur fracture status post right hip arthroplasty Discharge Exam She is awake she will follow commands she is oriented that she was in the hospital she was unaware of exact reason why she was in the hospital Card exam is regular lungs were clear abdomen NABS soft pulses and capillary refill were intact distally Discharge Data Allergies Allergy/AdvReac Type Severity Reaction Status Date / Time No Known Allergies Allergy Verified 04/10/23 17:33 Consultations 04/10/23 17:18 Consult Orthopedic Surgery Stat 04/10/23 18:40 ED Decision to Admit Stat Procedures Performed Operation Date: 04/11/23 09:15 Actual Procedures p Right Hip Hemiarthroplasty - Uncemented(Right) - Luis F Salazar DO Hospital Course (1) Closed fracture of neck of right femur: Acute right hip fracture *Age-related osteoporosis w current path fracture, right femur right hip hemiarthroplasty 04/11/2023 Dr. Salazar Patient vitamin D deficient vitamin D oral supplementation started Depression Continue sertraline, patient seems to have fairly significant dementia Bladder incontinence mixed, - history of stimulator s/p removal Removed 08/2021 in order to obtain MRI. Follows with POLISHING MACHINE OPERATOR HELPER and has pessary placed every few months Doss placed for hip fracture Surgery is elected twice daily aspirin for postoperative hip DVT prevention Patient is a DNR status PT OT postsurgery anticipate need for placement for rehab Total Time Total Time Spent Total Time Spent (In Minutes): It required less than 30 minutes to prepare this patient for discharge Discharge Plan Discharge Items Patient Disposition: Transfer Assisted Fac Reason For Visit: R HIP FXR Discharge Diagnosis: Right displaced femoral neck fracture baseline dementia acute blood loss anemia Activity: Per Instructions section Weightbearing: Right weightbearing Weightbearing Comment: As tolerated with walker Non-emergency contact: Surgeon Call non-emergency contact if: you have any medication questions, your pain is not controlled, your temperature is above 101.5, your wound has increased redness and your wound has increased drainage [facility] - Luis F Salazar DO [Surgeon] - (Follow-up with Dr. Salazar 2 weeks from the day of your surgery for your first postoperative visit) Diet: Regular Addtl Attending Provider Instructions: ACTIVITY RECOMMENDATIONS: SELF CARE INSTRUCTIONS AFTER TOTAL HIP REPLACEMENT Until the incision and soft tissues around your hip have healed, there is a possibility that the hip prosthesis could dislocate. A. Observe the following precautions to prevent dislocation: 1. Don't bend your hip greater than 90 degrees. 2. Avoid crossing your legs or ankles while standing or lying. 3. Sit with your feet placed 6 inches apart. 4. When sitting, keep your knees below your hips. Sit on a firm surface, avoid deep, soft chairs and couches. Use an elevated toilet seat in the bathroom. 5. Don't bend over at the waist. Use a long handled shoehorn and a sock aid to help you put on your shoes and socks. A power line installer can help you pharmacy picking technician objects that are too high or too low to reach. 6. Keep car riding to a minimum for at least one month after surgery. B. Your balance may be shaky for a while. Use crutches or a walker until directed by your doctor. C. Use hand rails when walking on stairs. D. Wear low heeled shoes with non-slip soles. E. Be sure that your floors are free of things that could trip you - throw rugs, electrical cords, small objects. Avoid wet and waxed floors, especially with crutches and canes. F. Try to walk several times a day with rest periods between. G. Continue with all the exercises taught to you in the hospital. Again, make walking a part of your daily routine. SPECIAL CARE INSTRUCTIONS: VERY IMPORTANT TO READ AND REVIEW A. You may still be at risk for phlebitis and blood clots. 1. Wear surgical stockings (LORENA hose) for 2 weeks after surgery to improve circulation and reduce swelling. 2. Take Aspirin 81mg twice daily for 4 weeks or as directed by your doctor. This is your blood thinner. 3. High risk patients may be prescribed a stronger blood thinner if necessary. 4. If you are on Coumadin normally, your family doctor/soldering machine operator automatic should monitor your blood work. Expect a phone call the day of or the day after bloodwork is drawn to adjust your dosage. B. You must take antibiotics before having dental work, bladder, bowel and other surgery. Your doctor will provide you with a permanent card to carry describing precautions. C. Call [facility] if you have a fever, redness or swelling around the incision, cloudy drainage from incision, or sudden increase in pain in your hip, not relieved by your regular pain medication. D. Please call the office at if you have any concerns or questions about your operation or recovery. * YOU MAY SHOWER, NO TUB BATHS UNTIL CLEARED BY YOUR DOCTOR. * WEAR LORENA HOSE 20 HOURS PER DAY FOR 2 WEEKS. * YOU SHOULD USE A WALKER OR CRUTCHES FOR 2-4 WEEKS. THIS WILL HELP PREVENT STRAIN ON YOUR HIP MUSCLE AND ALLOW IT TO HEAL PROPERLY. YOU MAY WEAN TO A CANE TOLERATED. * MOST PATIENTS WILL HAVE HOME NURSING FOR THERAPY. IF YOU DECIDE TO DO OUTPATIENT PHYSICAL THERAPY, PLEASE SCHEDULE THIS 3 TIMES PER WEEK. * YOU MAY HAVE A LARGE, BAND-AID LIKE DRESSING (SILVERON). THIS WILL REMAIN ON YOUR INCISION FOR 7 DAYS, THEN CAN BE REMOVED. IF INCISION IS LEAKING THROUGH DRESSING, PLEASE CALL THE OFFICE . FOLLOW UP VISIT: If appointment is not already scheduled: Please call [facility] to make a follow-up appointment for 2 weeks after your surgery at . Addtl Valance Cutter Provider Instructions: after 6 weeks of twice a day aspirin return to once a day Pending Studies at Discharge: No Stand-Alone Forms: My [facility] Skilled Items Patient informed of condition?: No DNR: Yes Discharge Level of Care: Skilled Communicable Disease: No Discharge Prognosis: Stable Lines: None Urinary Catheter: No Medications and DC Order Prescriptions: New sennosides-docusate sodium [Senokot-S] 8.6-50 mg Tablet 2 tab PO HS Qty: 60 0RF polyethylene glycol 3350 [Miralax] 17 gram Powder In Packet 17 g PO DAILY Qty: 30 0RF cholecalciferol (vitamin D3) 25 mcg (1,000 unit) Capsule 1,000 unit PO QAM Qty: 30 0RF aspirin 81 mg Tablet,Delayed Release (Dr/Ec) 81 mg PO BID Qty: 60 0RF acetaminophen [Tylenol Extra Strength] 500 mg Tablet 1,000 mg PO TID Qty: 90 0RF Continued sertraline 50 mg tablet 50 mg PO DAILY Calcium 600 + D(3) 600 mg calcium- 200 unit Capsule 2 cap PO QAM biotin 10 mg Tablet 10 mg PO DAILY ketoconazole 2 % shampoo 1 applic TOPICAL DIRECTED PRN (Reason: NEEDED PER EXT MED HX.) melatonin 3 mg Tablet 0 mg PO HS PRN (Reason: Sleep) Rx Instructions: PT UNSURE OF STRENGTH meclizine 12.5 mg tablet 12.5 mg PO TID PRN (Reason: dizziness) Qty: 20 0RF Discontinued aspirin [Adult Low Dose Aspirin] 81 mg tablet,delayed release (DR/EC) 81 mg PO DAILY Patient Comments: every other day Discharge Orders: Discharge Order (Routine); Ordered 04/15/23 Ordered By: Blas Jolley/Other Patient Handouts: Hip Fx Surg Dc Admission Data Admit Date/Time: 04/10/23 19:48 Attending Provider: Blas Ly Admit Provider: Demetrio Adam Primary Care Provider: Lionel Noonan Other Providers: Luis F Salazar ; Demetrio Adam Other Interventions: Discharge Summary Assessment (RN) Last Done: 04/15/23 13:14 Coding Level of Care Code 49096 IN/OBS DISCH 30 MIN/LESS Diagnoses Closed fracture of neck of right femur S72.001A
== END 2023-04-15 15:15 | DRG 522 ==
LOC: ED 15:11 → SUATTDRO 19:48 → 3W 19:48